=== PATIENT | male | born 1985 | race Caucasian/White ===

== ENCOUNTER 2016-08-16 08:31 | Emergency (ER) | payer OTHER ==
[2016-08-16 10:10] LABS: Hematocrit 43 % (42-52); Hemoglobin 14.8 g/dl (14.0-18.0); Mean Corpuscular HGB Conc 35 g/dl (31-36); Mean Corpuscular Hemoglobin 30 pg (27-31); Mean Corpuscular Volume 86 fL (80-94); Mean Platelet Volume 9 um3 (7.4-10.4); Red Blood Count 5.03 10^6/ul (4.0-5.4); Red Cell Distribution Width 13 % (10.5-15); White Blood Count 3.2 10^3/ul (3.5-10.8)
[2016-08-16 10:13] LABS: Add Diff/Slide Review? Slide Review Added; Comments Flag Yes
[2016-08-16 10:22] LABS: Albumin 4.1 g/dL (3.2-5.2); BUN/Creatinine Ratio 6.6 (8-20); C Reactive Protein 20.42 mg/L (< 5.00); Calcium 8.9 mg/dL (8.6-10.3); EGFR African American 126.7 (>60); EGFR Non-African American 98.5 (>60); Globulin 2.2 g/dL (2-4); Potassium 3.7 mmol/L (3.5-5.0); Total Bilirubin 0.6 mg/dL (0.2-1.0); Total Protein 6.3 g/dL (6.4-8.9)
[2016-08-16] MEDS ORDERED: NS 0.9% 1000 ML* 1,000 ML IV ONE (11:10)
--- NOTE | 2016-08-18 09:15 | ED ---
Stiven Maldonado Benjamin, scribed for Johnny Cherry MD on 08/16/16 at 0945 . Abdominal Pain/Male - HPI Summary HPI Summary: 30yo male c/o stomach cramps and severe diarrhea on and off since last Sunday. Pt first had severe stomach cramps on Sunday with mild V/D, and then on Sunday had mild diarrhea throughout the day, which got severe yesterday. Pt reports having watery diarrhea, stating that he couldnt keep anything in. - History of Current Complaint Chief Complaint: EDNauseaVomitDiarrh Stated Complaint: ABD PAIN Time Seen by Provider: 08/16/16 09:23 Hx Obtained From: Patient Onset/Duration: Gradual Onset, Lasting Days, Still Present Timing: Constant Severity Initially: Moderate Severity Currently: Mild Pain Intensity: 0 Location: Diffuse Radiates: No Character: Cramping Aggravating Factor(s): Nothing Alleviating Factor(s): Nothing Associated Signs And Symptoms: Positive: Vomiting, Diarrhea - Allergies/Home Medications Allergies/Adverse Reactions: Allergies Allergy/AdvReac Type Severity Reaction Status Date / Time No Known Allergies Allergy Verified 08/16/16 08:49 PMH/Surg Hx/FS Hx/Imm Hx Infectious Disease History: No Infectious Disease History: Denies: Traveled Outside the [place] in Last 30 Days Review of Systems Constitutional: Negative Eyes: Negative ENT: Negative Cardiovascular: Negative Respiratory: Negative Positive: Abdominal Pain, Vomiting, Diarrhea. Negative: Nausea Genitourinary: Negative Musculoskeletal: Negative Skin: Negative Neurological: Negative Psychological: Normal All Other Systems Reviewed And Are Negative: Yes Physical Exam Triage Information Reviewed: Yes Vital Signs On Initial Exam: Initial Vitals Temp Pulse Resp BP Pulse Ox 98.4 F 97 15 115/64 97 08/16/16 08:49 08/16/16 08:49 08/16/16 08:49 08/16/16 08:49 08/16/16 08:49 Vital Signs Reviewed: Yes Appearance: Positive: Well-Appearing, No Pain Distress, Well-Nourished Skin: Positive: Warm, Skin Color Reflects Adequate Perfusion, Dry Head/Face: Positive: Normal Head/Face Inspection Eyes: Positive: Normal ENT: Positive: Normal ENT inspection Neck: Positive: Supple, Nontender Respiratory/Lung Sounds: Positive: Clear to Auscultation, Breath Sounds Present Cardiovascular: Positive: RRR Abdomen Description: Positive: Nontender, Soft Bowel Sounds: Positive: Present Musculoskeletal: Positive: Normal, Strength/ROM Intact Neurological: Positive: Normal, Sensory/Motor Intact, Alert, Oriented to Person Place, Time, CN Intact II-III, Reflexes Intact Psychiatric: Positive: Affect/Mood Appropriate Diagnostics - Vital Signs Vital Signs Temp Pulse Resp BP Pulse Ox 08/16/16 08:49 98.4 F 97 15 115/64 97 - Laboratory Lab Results: Lab Results 08/16/16 08/16/16 08/16/16 Range/Units 09:32 09:32 09:32 WBC 3.2 L (3.5-10.8) 10^3/ul RBC 5.03 (4.0-5.4) 10^6/ul Hgb 14.8 (14.0-18.0) g/dl Hct 43 (42-52) % MCV 86 (80-94) fL MCH 30 (27-31) pg MCHC 35 (31-36) g/dl RDW 13 (10.5-15) % Plt Count 164 (150-450) 10^3/ul MPV 9 (7.4-10.4) um3 Neut % (Auto) 47.7 (38-83) % Lymph % (Auto) 30.2 (25-47) % Dukes % (Auto) 18.6 H (1-9) % Eos % (Auto) 3.1 (0-6) % Baso % (Auto) 0.4 (0-2) % Absolute Neuts (auto) 1.5 (1.5-7.7) 10^3/ul Absolute Lymphs (auto) 1.0 (1.0-4.8) 10^3/ul Absolute Monos (auto) 0.6 (0-0.8) 10^3/ul Absolute Eos (auto) 0.1 (0-0.6) 10^3/ul Absolute Basos (auto) 0 (0-0.2) 10^3/ul Absolute Nucleated RBC 0.01 10^3/ul Nucleated RBC % 0.3 Sodium 135 (133-145) mmol/L Potassium 3.7 (3.5-5.0) mmol/L Chloride 103 (101-111) mmol/L Carbon Dioxide 26 (22-32) mmol/L Anion Gap 6 (2-11) mmol/L BUN 6 (6-24) mg/dL Creatinine 0.91 (0.67-1.17) mg/dL Est GFR ( Amer) 126.7 (>60) Est GFR (Non-Af Amer) 98.5 (>60) BUN/Creatinine Ratio 6.6 L (8-20) Glucose 98 (70-100) mg/dL Lactic Acid 0.6 (0.5-2.0) mmol/L Calcium 8.9 (8.6-10.3) mg/dL Total Bilirubin 0.60 (0.2-1.0) mg/dL AST 22 (13-39) U/L ALT 31 (7-52) U/L Alkaline Phosphatase 56 (34-104) U/L C-Reactive Protein 20.42 H (< 5.00) mg/L Total Protein 6.3 L (6.4-8.9) g/dL Albumin 4.1 (3.2-5.2) g/dL Globulin 2.2 (2-4) g/dL Albumin/Globulin Ratio 1.9 (1-3) Result Diagrams: 08/16/16 09:32 08/16/16 09:32 Lab Statement: Any lab studies that have been ordered have been reviewed, and results considered in the medical decision making process. Abdominal Pain Fem Course/Dx - Course Course Of Treatment: Mr. Boyle presented with a good history for AGE which began to improve and then got worse again during the night. His only C/O now is watery stool many times during the night. He was rehydrated here and labs checked. He wasn't able to produce any stool here so this might have already abated. He was encouraged to bring a stool sample to the lab if his diarrhea continues. - Diagnoses Provider Diagnoses: Gastroenteritis Discharge - Discharge Plan Condition: Stable Disposition: HOME Patient Education Materials: Dehydration (ED), Gastroenteritis (ED) Referrals: [facility] BLAIR Traylor [Primary Care Provider] - The documentation as recorded by the Stiven beatty Benjamin accurately reflects the service I personally performed and the decisions made by me, Johnny Cherry MD.
== END 2016-08-16 13:28 | disposition home or self-care (01) ==
LOC: ED 08:31
DX: K52.9 Noninfective gastroenteritis and colitis, unspecified (principal); R11.10 Vomiting, unspecified; R19.7 Diarrhea, unspecified; R10.9 Unspecified abdominal pain
CPT/HCPCS: 36415; 80053; 83605; 85025; 86140; 96360; 99282